=== PATIENT | male | born 1995 | race African-American/Black ===

== ENCOUNTER 2017-10-25 12:17 | Emergency (ER) | payer SELFPAY, OTHER ==
[2017-10-25 12:34] LABS: ADD MAN DIFF? NO
[2017-10-25 12:36] LABS: BASO % 1 % (0-3); EOS # 0.2 x10^3/uL (0.0-0.7); EOS % 3 % (0-3); HEMATOCRIT 39.8 % (39.0-53.0); HEMOGLOBIN 13.5 g/dL (13.0-17.5); LYMPH # 1.4 x10^3/uL (1.0-4.8); LYMPH % 24 % (24-48); MEAN CORPUSCULAR HEMOGLOBIN 31 pg (25-35); MEAN CORPUSCULAR HGB CONC 34 g/dL (31-37); MEAN CORPUSCULAR VOLUME 91 fL (79-100); MONO # 0.6 x10^3/uL (0.0-1.1); MONO % 11 % (0-9); NEUT # 3.7 x10^3uL (1.8-7.7); NEUT % 62 % (31-73); PLATELET COUNT 205 x10^3/uL (140-400); RED BLOOD COUNT 4.39 x10^6/uL (4.30-5.70); RED CELL DISTRIBUTION WIDTH 15.1 % (11.5-14.5)
[2017-10-25] MEDS: IBUPROFEN 600 MG TABLET. PO (12:42)
[2017-10-25 12:45] LABS: ANION GAP 5 (6-14); BLOOD UREA NITROGEN 12 mg/dL (8-26); BUN/CREATININE RATIO 11 (6-20); CALCIUM 9.4 mg/dL (8.5-10.1); CARBON DIOXIDE 32 mmol/L (21-32); CHLORIDE 105 mmol/L (98-107); CREATININE 1.1 mg/dL (0.7-1.3); GFR 102.2; GLUCOSE 91 mg/dL (70-99); SODIUM 142 mmol/L (136-145)
[2017-10-25 12:51] LABS: ALBUMIN 4.5 g/dL (3.4-5.0); ALBUMIN/GLOBULIN RATIO 1.3 (1.0-1.7); ALK PHOS 71 U/L (46-116); ALT (SGPT) 27 U/L (16-63); AST (SGOT) 32 U/L (15-37); TOTAL BILIRUBIN 0.9 mg/dL (0.2-1.0); TOTAL PROTEIN 8.1 g/dL (6.4-8.2)
[2017-10-25 13:04] LABS: TROPONINI < 0.017 ng/mL (0.000-0.055)
== END 2017-10-25 13:54 | disposition home or self-care (01) ==
LOC: ER 12:17
DX: R07.9 Chest pain, unspecified (principal); J45.909 Unspecified asthma, uncomplicated; F12.10 Cannabis abuse, uncomplicated; F17.210 Nicotine dependence, cigarettes, uncomplicated; Z79.1 Long term (current) use of non-steroidal anti-inflammatories (NSAID); Z91.012 Allergy to eggs
CPT/HCPCS: 36415; 71046; 80053; 84484; 85025; 93005; 99285

== ENCOUNTER 2017-12-04 20:49 | Emergency (ER) | payer SELFPAY ==
[2017-12-04 21:25] LABS: ADD MAN DIFF? NO
[2017-12-04 21:27] LABS: BASO % 1 % (0-3); EOS # 0.2 x10^3/uL (0.0-0.7); EOS % 3 % (0-3); HEMATOCRIT 37.7 % (39.0-53.0); HEMOGLOBIN 12.7 g/dL (13.0-17.5); LYMPH # 1.7 x10^3/uL (1.0-4.8); LYMPH % 35 % (24-48); MEAN CORPUSCULAR HEMOGLOBIN 31 pg (25-35); MEAN CORPUSCULAR HGB CONC 34 g/dL (31-37); MEAN CORPUSCULAR VOLUME 92 fL (79-100); MONO # 0.5 x10^3/uL (0.0-1.1); MONO % 10 % (0-9); NEUT # 2.5 x10^3uL (1.8-7.7); NEUT % 51 % (31-73); PLATELET COUNT 171 x10^3/uL (140-400); RED BLOOD COUNT 4.12 x10^6/uL (4.30-5.70); RED CELL DISTRIBUTION WIDTH 14.6 % (11.5-14.5)
[2017-12-04] MEDS: LORazepam 1 MG TABLET PO (21:27)
[2017-12-04 21:43] LABS: ANION GAP 5 (6-14); BLOOD UREA NITROGEN 11 mg/dL (8-26); BUN/CREATININE RATIO 10 (6-20); CALCIUM 8.9 mg/dL (8.5-10.1); CARBON DIOXIDE 31 mmol/L (21-32); CHLORIDE 103 mmol/L (98-107); CREATININE 1.1 mg/dL (0.7-1.3); GFR 102.2; GLUCOSE 86 mg/dL (70-99); POTASSIUM 3.7 mmol/L (3.5-5.1); SODIUM 139 mmol/L (136-145)
[2017-12-04 21:44] LABS: ETHANOL < 10 mg/dL (0-10)
[2017-12-04 21:47] LABS: BARBITURATES NEG (NEG); BENZODIAZEPINES NEG (NEG); CANNABINOIDS NEG (NEG); COCAINE NEG (NEG); METHADONE NEG (NEG); OPIATES NEG (NEG); PHENCYCLIDINE NEG (NEG)
[2017-12-04 21:49] LABS: ALBUMIN 3.9 g/dL (3.4-5.0); ALBUMIN/GLOBULIN RATIO 1.1 (1.0-1.7); ALK PHOS 57 U/L (46-116); ALT (SGPT) 24 U/L (16-63); AMPHETAMINE/METHAMPHETAMINE NEG (NEG); AST (SGOT) 26 U/L (15-37); ETHANOL, URINE NEG (NEG); TOTAL BILIRUBIN 0.4 mg/dL (0.2-1.0); TOTAL PROTEIN 7.5 g/dL (6.4-8.2)
[2017-12-04 21:51] LABS: TROPONINI < 0.017 ng/mL (0.000-0.055)
== END 2017-12-04 23:17 | disposition home or self-care (01) ==
LOC: ER 20:49
DX: F41.9 Anxiety disorder, unspecified (principal); R07.89 Other chest pain; R03.0 Elevated blood-pressure reading, without diagnosis of hypertension; J45.909 Unspecified asthma, uncomplicated; F31.9 Bipolar disorder, unspecified; F20.9 Schizophrenia, unspecified; Z59.0 Homelessness; Z91.012 Allergy to eggs
CPT/HCPCS: 36415; 71045; 80053; 80307; 84484; 85025; 93005; 99285-25; G0480

== ENCOUNTER 2017-12-13 01:11 | Emergency (ER) | payer SELFPAY ==
[2017-12-13] MEDS: OLANZapine 5 MG TABLET PO (02:07)
[2017-12-13] MEDS: LORazepam 1 MG TABLET PO (02:07)
[2017-12-13 05:04] LABS: ADD MAN DIFF? NO
[2017-12-13 05:06] LABS: BASO % 1 % (0-3); EOS # 0.2 x10^3/uL (0.0-0.7); EOS % 4 % (0-3); HEMATOCRIT 37.1 % (39.0-53.0); HEMOGLOBIN 12.6 g/dL (13.0-17.5); LYMPH # 2.2 x10^3/uL (1.0-4.8); LYMPH % 40 % (24-48); MEAN CORPUSCULAR HEMOGLOBIN 31 pg (25-35); MEAN CORPUSCULAR HGB CONC 34 g/dL (31-37); MEAN CORPUSCULAR VOLUME 91 fL (79-100); MONO # 0.6 x10^3/uL (0.0-1.1); MONO % 12 % (0-9); NEUT # 2.4 x10^3uL (1.8-7.7); NEUT % 44 % (31-73); PLATELET COUNT 157 x10^3/uL (140-400); RED BLOOD COUNT 4.07 x10^6/uL (4.30-5.70); RED CELL DISTRIBUTION WIDTH 14.3 % (11.5-14.5); WHITE BLOOD COUNT 5.6 x10^3/uL (4.0-11.0)
[2017-12-13 05:28] LABS: ANION GAP 11 (6-14); BLOOD UREA NITROGEN 10 mg/dL (8-26); BUN/CREATININE RATIO 10 (6-20); CALCIUM 8.5 mg/dL (8.5-10.1); CARBON DIOXIDE 29 mmol/L (21-32); CHLORIDE 102 mmol/L (98-107); GLUCOSE 85 mg/dL (70-99); POTASSIUM 3.5 mmol/L (3.5-5.1); SODIUM 142 mmol/L (136-145)
[2017-12-13 05:33] LABS: ALBUMIN 3.7 g/dL (3.4-5.0); ALBUMIN/GLOBULIN RATIO 1.2 (1.0-1.7); ALK PHOS 56 U/L (46-116); ALT (SGPT) 29 U/L (16-63); AST (SGOT) 34 U/L (15-37); TOTAL BILIRUBIN 0.5 mg/dL (0.2-1.0); TOTAL PROTEIN 6.9 g/dL (6.4-8.2)
== END 2017-12-13 07:14 | disposition home or self-care (01) ==
LOC: ER 01:11
DX: F41.9 Anxiety disorder, unspecified (principal); R07.89 Other chest pain; J45.909 Unspecified asthma, uncomplicated; Z91.012 Allergy to eggs
CPT/HCPCS: 36415; 80053; 85025; 93005; 99285-25